=== PATIENT | male | born 1955 | race Caucasian/White ===

== ENCOUNTER 2024-12-13 17:41 | Inpatient (IN) | payer OTHER, MEDICARE ==
[~2024-12-13] VITALS: Ht 182.9 cm; Wt 75.3 kg
--- NOTE | 2024-12-13 19:09 | Physician Documentation ---
History of Present Illness ~ Chief Complaint: Bloody Stools Stated Complaint: GI BLEED Time Seen by MD: 18:26 HPI Patient presents to the emergency room for evaluation sent by [facility] for upper GI bleed. Patient has been having some black stools recently and brou ght his stool in to be evaluated which was tarry in appearance with guaiac positive. Significant alcohol abuse. He does not believe he has ever had an EGD performed. No hematemesis reported. He is not on blood thinners. He was started on Protonix from sending facility. CT scan was negative for any perforation Review of Systems ROS All review of systems negative except as per HPI Physical Exam Vital Signs: Temperature: 98.6, Source: Oral, Heart Rate: 82, Respiratory Rate: 16, BP: 113/77, Pulse Oximetry: 92, Weight: 75.300 Oxygen Flow Rate: 0 Physical Exam General: Patient is awake, alert, oriented x4 in no acute distress. Mild tremors Head: Normocephalic and atraumatic. Eyes: Conjunctival normal. EOMI. PERRL. ENT: Mucous membranes moist. Neck: Supple, trachea is midline. Chest: Clear to auscultation bilaterally without rales, rhonchi, or wheezes. There is no accessory muscle use or retractions. Cardiac: RRR without murmurs, gallops, or rubs. Abd: Soft, nondistended, nontender, with normoactive bowel sounds. No guarding, rebound, or rigidity. Progress Results/Orders Results/Orders Orders - ABDIAS HINOJOSA MD Pantoprazole 40mg/Ns 100ml Bag (Protonix (12/13/24 21:00) Chlordiazepoxide Capsule (Librium Capsul (12/13/24 18:30) Vital Signs 12/13/24 17:56 Temp 98.6 Pulse 82 Resp 16 B/P (MAP) 113/77 Pulse Ox 92 O2 Flow Rate 0 Medical Decision Making Findings Patient presents to the emergency room for evaluation of upper GI bleed transferred from [facility]. Protonix initiated. He has been having black tarry stools which were guaiac positive. Positive history of alcohol abuse. Labs reviewed show elevation of BUN consistent with diagnosis of upper GI bleed. Vital signs currently stable. We will admit for further investigation Departure Admitted to Inpatient Unit: yes, to hospitalist Impression: Primary Impression: GI bleed Additional Impression: Alcohol abuse Condition: Guarded Referrals: NO PRIMARY CARE PROVIDER (PCP) Critical Care Note Total Time (mins): 45 Critical Care Note The very real possibility of a deterioration of this patient's condition required the highest level of my preparedness for sudden, emergent intervention. I provided critical care services, which included medication orders, frequent reevaluations of the patient's condition and response to treatment, ordering and reviewing test results, and discussing the case with various consultants. Excludes time spent performing separately billable procedures. The critical care time associated with the care of the patient was 45 not counting procedures Signature Scribe Signature: No scribe Attestation: The note accurately reflects work and decisions made by me.Abdias Hinojosa MD 12/13/24 19:17 ABDIAS HINOJOSA MD Dec 13, 2024 19:09
[2024-12-13] MEDS ORDERED: NO HOME MEDS (19:17)
[2024-12-13 19:41] LABS: BASOPHILS % (AUTO) 0.5 % (0-1); EOSINOPHILS % (AUTO) 0.6 % (0-6); HEMATOCRIT 35.1 % (42.0-52.0); HEMOGLOBIN 11.9 g/dl (14.0-17.9); LYMPHOCYTES # (AUTO) 0.6 X10'3 (1.1-4.8); LYMPHOCYTES % (AUTO) 10.7 % (21-51); MEAN CORPUSCULAR HEMOGLOBIN 34.6 PG (27.0-31.0); MEAN CORPUSCULAR HGB CONC 33.8 g/dL (33.0-36.5); MEAN CORPUSCULAR VOLUME 102.5 FL (78-98); MEAN PLATELET VOLUME 6.8 FL (7.4-10.4); MONOCYTES # (AUTO) 0.5 X10'3 (0-0.9); MONOCYTES % (AUTO) 9.9 % (2-12); NEUTROPHILS # (AUTO) 4.3 X10'3 (1.8-7.7); NEUTROPHILS % (AUTO) 78.3 % (42-75); PLATELET COUNT 198 X10'3 (140-440); RED BLOOD COUNT 3.43 X10'6 (4.70-6.10); RED CELL DISTRIBUTION WIDTH 16.8 % (11.5-14.5); WHITE BLOOD COUNT 5.5 X10'3 (4.5-11.0)
[2024-12-13 19:54] LABS: ALANINE AMINOTRANSFERASE 26 U/L (12-78); ALBUMIN/GLOBULIN RATIO 1.2 (1.1-1.5); ALKALINE PHOSPHATASE 67 IU/L (46-116); ANION GAP 10 (8-16); ASPARTATE AMINO TRANSFERASE 22 U/L (10-37); BILIRUBIN,TOTAL 0.9 MG/DL (0.1-1.0); BLOOD UREA NITROGEN 23 MG/DL (7-18); BUN/CREATININE RATIO 29.1 (10.0-20.0); CALCIUM 8.1 MG/DL (8.5-10.1); CHLORIDE 106 MMOL/L (99-107); CREATININE 0.79 MG/DL (0.60-1.10); GLUCOSE 87 MG/DL (70-104); POTASSIUM 3.3 MMOL/L (3.5-5.1); SODIUM 144 MMOL/L (135-145); TOTAL CARBON DIOXIDE 27.8 MMOL/L (24-32); TOTAL PROTEIN 5.6 G/DL (6.4-8.2); eCRCL 91 ML/MIN; eGFR > 90 ML/MIN
[2024-12-13] MEDS: chlordiazePOXIDE 25mg capsule PO ONE (20:27)
[2024-12-13] MEDS: pantoprazole 40MG/NS 100ML BAG 100 ML IV SCH (20:30)
[2024-12-13 22:10] VITALS: BP 137/68; PULSE 67; RESP 18; TEMP 97.3; O2SAT 97
[2024-12-13] MEDS ORDERED: magnesium sulf-water 2g/50mL 50 ML IV PRN (22:10)
[2024-12-13] MEDS: normal saline 1000ml 1,000 ML IV SCH (22:10)
[2024-12-13] MEDS ORDERED: LORazepam 1 MG tablet PO PRN (22:10)
[2024-12-13] MEDS ORDERED: ondansetron/PF 4mg/2ml inj IV PRN (22:10)
[2024-12-13] MEDS ORDERED: acetaminophen 325mg tablet PO PRN (22:10)
[2024-12-13] MEDS ORDERED: LORazepam 2 mg/ml vial IV PRN (22:10)
[2024-12-13] MEDS ORDERED: mag hydrox/Alum hydrox/simeth 30ml oral suspension PO PRN (22:10)
[2024-12-13] MEDS ORDERED: magnesium hydroxide 30ml (MOM) UD suspension PO PRN (22:10)
[2024-12-13] MEDS ORDERED: magnesium sulf-water 4G/100mL 100 ML IV PRN (22:10)
[2024-12-13] MEDS ORDERED: potassium Cl 40MEQ/1/2NS 520ml 520 ML IV PRN (22:10)
[2024-12-13] MEDS: PERFLUTREN PROTEIN-A MICROSPHR (Optison) 0.22 MG/ML 3ML VIAL IV ONE (22:10)
[2024-12-13] MEDS ORDERED: potassium Cl 20 mEq SR tablet PO PRN (22:10)
[2024-12-13] MEDS ORDERED: ipratropium/albuterol 3ml nebule NEB PRN (22:20)
--- NOTE | 2024-12-13 22:20 | HISTORY AND PHYSICAL-Residence ---
History & Physical Providers to CC Resident Creating Document: SINAN SOSA, RES CC: SHONDA MORIN MD ~ History of Present Illness Reason for Admit\Complaint: Bloody stools History of Present Illness A 69-year-old male with past medical history of COPD and chronic neck pain presented as a transfer from [facility] in view of upper abdominal pain and dark tarry stools for the past three days. Patient states that he had multiple episodes of black tarry stools for the last three days, but no hematemesis. Patient states that he had vomited the food that he had taken the day before black tarry stools have started. Patient also started to have abdominal pain that relieved on passing the stools. Patient endorses heavy alcohol drinking about drinking one bottle of gin in three days. Patient denies using any anticoagulants at home. Patient does not remember when he underwent colonoscopy but does not have any significant findings. Patient never underwent an EGD. Patient states that his abdominal pain is sharp in character with no radiation that increases with coughing or sneezing and relieves on rest. Patient presented to the ED at [facility] with a clear bottle containing black tarry stool suspicious of GI bleed. Allergies: Coded Allergies: No Known Allergies (Unverified , 12/13/24) Home Medications Home Medications Active Reported No Home Medications (Home Med List) Each Past Medical History Past Medical History COPD Closed fracture of multiple left ribs Chronic neck pain Past Surgical History Surgical History Comment None Past Social History Social History Comment Lives in we were well with a friend Goes [facility] Smokes half pack of cigarettes every day for the last 60 years but increased to one pack per day for the last eight years Consumes one whole bottle of gin in three days Does not consume marijuana or illicit drugs ROS ROS All other systems reviewed in full and negative except for the pertinent positives mentioned in the HPI Exam Vitals: Vital Signs Date Time Temp Pulse Resp B/P (MAP) Pulse Ox O2 Delivery O2 Flow Rate FiO2 12/13/24 21:28 15 12/13/24 21:28 70 95 0 12/13/24 19:18 98.6 General: General: Alert, awake, oriented, not in acute distress HEENT: Loss of for teeth in the lower jaw, PERRLA, no icterus, pallor, lymphadenopathy, carotid bruit Respiratory system: Bilateral vesicular breath sounds heard, no adventitious breath sounds CVS: S1-S2 heard, no murmurs/rubs/gallop GI: Tenderness in the upper abdominal region, Soft, no organomegaly, no guarding/rigidity, bowel sounds present Neuro: No focal neurological deficits present Extremities: No edema cyanosis clubbing/deformities Skin: Warm and dry Diagnostic Data Last Recorded Lab Results: 12/13/24193112/13/241931 Advance Care Planning Advanced Care plannin - 30 Minutes (I spent 20 minutes discussing various resuscitative measures and the patient decided to be full code) Additional Plan Assessment: A 69-year-old male with a past medical history of COPD presented to the ED as a transfer in view of bloody stools. Patient is admitted for the evaluation management of possible upper GI bleed. Plan: Possible upper GI bleed 2/2 most likely alcoholic gastritis H/H stable IV Protonix drip H/H q.4h, transfuse if HGB less than seven NPO CT abdomen at OSH: Trace hyperdense material and sigmoid colon which may represent blood products, mild wall thickening of several small bowel loops in the left abdomen which may be secondary to enteritis. Moderately dilated common duct with a question of a punctate stone in the distal common bile duct correlate with liver chemistries Consult with GI in a.m., possible upper GI endoscopy Possible CBD stone Liver enzymes normal If the patient continues to complain of pain despite no active bleeding might require further analysis with MRCP/ERCP COPD, not in acute exacerbation DuoNeb q.4h p.r.n. Follow up with echo, lipid panel and A1c Code status: Full code Diet: NPO DVT prophylaxis: SCD Disposition: Admit to PCU, GI consult in a.m. with possible EGD Sinan Sosa MD Internal Medicine, PGY 1 I discussed the patient with the resident and agree with the assessment and plan as above. Shonda Morin MD Critical Care Date of Service: Dec 13, 2024 Billing Provider: SHONDA MORIN MD,SINAN, RES Dec 13, 2024 22:20 SHONDA MORIN MD Dec 14, 2024 03:20
[2024-12-13 22:59] VITALS: PULSE 72; RESP 16; O2SAT 92
[2024-12-13 23:45] LABS: HEMOGLOBIN 10.7 g/dl (14.0-17.9); MEAN CORPUSCULAR HEMOGLOBIN 35.4 PG (27.0-31.0); MEAN CORPUSCULAR HGB CONC 34.6 g/dL (33.0-36.5); MEAN CORPUSCULAR VOLUME 102.3 FL (78-98); MEAN PLATELET VOLUME 6.9 FL (7.4-10.4); PLATELET COUNT 170 X10'3 (140-440); RED BLOOD COUNT 3.03 X10'6 (4.70-6.10); RED CELL DISTRIBUTION WIDTH 15.8 % (11.5-14.5); WHITE BLOOD COUNT 4.8 X10'3 (4.5-11.0)
[2024-12-14] VITALS (20 sets, daily range): BP systolic 111–142; BP diastolic 39–86; PULSE 49–95; RESP 14–24; TEMP 97–98.6; O2SAT 92–98
[2024-12-14] MEDS: pantoprazole 40MG/NS 100ML BAG 100 ML IV ONE ×2 (00:56→07:56)
[2024-12-14] MEDS: pantoprazole 40MG/NS 100ML BAG 100 ML IV SCH (01:00)
--- NOTE | 2024-12-14 01:43 | RADIOLOGY REPORT ---
CHEST RADIOGRAPH Indication: pneumonia Technique: Single frontal view of the chest was obtained Comparison: None FINDINGS: Lines and Tubes: None Lungs: Clear Pleura: No effusion. No pneumothorax. Cardiomediastinal contours: Unremarkable Bones: Unremarkable IMPRESSION: Clear lungs.
[2024-12-14 03:20] LABS: BASOPHILS % (AUTO) 0.7 % (0-1); EOSINOPHILS # (AUTO) 0.1 X10'3 (0-0.9); EOSINOPHILS % (AUTO) 2.3 % (0-6); HEMATOCRIT 32.6 % (42.0-52.0); LYMPHOCYTES % (AUTO) 23.2 % (21-51); MEAN CORPUSCULAR HEMOGLOBIN 34.8 PG (27.0-31.0); MEAN CORPUSCULAR HGB CONC 33.9 g/dL (33.0-36.5); MEAN CORPUSCULAR VOLUME 102.7 FL (78-98); MEAN PLATELET VOLUME 7.2 FL (7.4-10.4); MONOCYTES # (AUTO) 0.4 X10'3 (0-0.9); MONOCYTES % (AUTO) 9.5 % (2-12); NEUTROPHILS # (AUTO) 2.8 X10'3 (1.8-7.7); NEUTROPHILS % (AUTO) 64.3 % (42-75); PLATELET COUNT 180 X10'3 (140-440); RED BLOOD COUNT 3.17 X10'6 (4.70-6.10); RED CELL DISTRIBUTION WIDTH 16.1 % (11.5-14.5); WHITE BLOOD COUNT 4.3 X10'3 (4.5-11.0)
[2024-12-14 03:27] LABS: ALBUMIN 2.5 G/DL (3.4-5.0); ANION GAP 11 (8-16); BLOOD UREA NITROGEN 22 MG/DL (7-18); BUN/CREATININE RATIO 33.8 (10.0-20.0); CHLORIDE 108 MMOL/L (99-107); CHOL/HDL RATIO 1.5 (0.00-4.99); CHOLESTEROL 140 MG/DL (0-200); CREATININE 0.65 MG/DL (0.60-1.10); GLUCOSE 84 MG/DL (70-104); HDL CHOLESTEROL 94 MG/DL (35-60); LDL CHOLESTEROL 35 MG/DL (50-100); MAGNESIUM 1.5 MG/DL (1.5-2.4); POTASSIUM 3.2 MMOL/L (3.5-5.1); SODIUM 146 MMOL/L (135-145); TOTAL CARBON DIOXIDE 26.8 MMOL/L (24-32); TRIGLYCERIDES 73 MG/DL (20-135); eCRCL 111 ML/MIN; eGFR > 90 ML/MIN
[2024-12-14] MEDS: docusate sod 100mg capsule PO SCH (08:00)
[2024-12-14] MEDS: multivitamins, therapeutics tablet PO SCH (08:00)
[2024-12-14] MEDS: K and/or MAG REPLACEMENT MC SCH (08:00)
[2024-12-14 08:28] LABS: HEMATOCRIT 32.8 % (42.0-52.0); HEMOGLOBIN 11.2 g/dl (14.0-17.9); MEAN CORPUSCULAR HEMOGLOBIN 35.3 PG (27.0-31.0); MEAN CORPUSCULAR HGB CONC 34.3 g/dL (33.0-36.5); MEAN CORPUSCULAR VOLUME 102.9 FL (78-98); MEAN PLATELET VOLUME 7.4 FL (7.4-10.4); PLATELET COUNT 164 X10'3 (140-440); RED BLOOD COUNT 3.19 X10'6 (4.70-6.10); RED CELL DISTRIBUTION WIDTH 16.4 % (11.5-14.5); WHITE BLOOD COUNT 4.5 X10'3 (4.5-11.0)
[2024-12-14] MEDS: thiamine 100mg/ml 2ml inj. IV SCH (09:00)
--- NOTE | 2024-12-14 11:01 | PROGRESS NOTE ---
Daily Progress Note Providers to CC ~ Antibiotic Timeout Antibiotic Ordered?: No Subjective No complaints. Patient is seen resting comfortably Objective Vital Signs Date Time Temp Pulse Resp B/P (MAP) Pulse Ox O2 Delivery O2 Flow Rate FiO2 12/14/24 08:26 63 16 93 Room Air* 0 21 12/14/24 02:00 97.0 130/65 (86) Result Diagram: 12/14/24 0759 12/14/24 0310 Awake alert cooperative in no acute distress HEENT normocephalic atraumatic extraocular movements are intact Neck supple, no JVD Chest: Clear to auscultation, no wheezes crackles rhonchi Heart regular rate rhythm, no murmur or gallop rub Abdomen is soft nontender no organomegaly Extremities no cyanosis clubbing or edema Neuro exam is nonfocal. Other Results Medications reviewed Problem\Assessment\Plan 69 years old male presented to the ER for evaluation of black tarry stools. 1. Melena: H&H is stable. Continue monitor. GI consultation requested , I spoke to Dr. Jimenez. Continue IV protonix 2. COPD without exacerbation; Inhaled bronchodilators PRN 3.Chronic neck pain Address pain control as necessary. 4. Hypokalemia Replace per protocol 5. Code status ; Full code. Date of Service: Dec 14, 2024 Billing Provider: ZHANE CHOI MD Common Visit Codes: [id number] INP/OBS CARE(HIGH) ZHANE CHOI MD Dec 14, 2024 11:01
--- NOTE | 2024-12-14 12:46 | CONSULTATION REPORT - RESIDENT ---
Consult Providers to CC Resident Creating Document: DARIEL MORRISLAZ MATTHEW CC: AVANI SILVER MD History of Present Illness Reason for Admit\Complaint: Black stools History of Present Illness Patient is 69-year-old male with past medical history of spinal stenosis who came to ED after 48 hours of black tarry stools. Patient reports that two days prior to admission he presented with black tarry/liquid stools, accompanied with mild 3/10 epigastric pain, constant, nonradiating. Reports four episodes a day. He denies nausea, vomiting, fever, chills or any other subjective symptoms. Patient reports that he usually takes hydrocodone for his back pain, however, when he is are refills of hydrocodone he takes ibuprofen, last time he took ibuprofen was three days ago, he took two pills of 600 mg. He states he has been doing this for about one year. In addition, he reports heavy alcohol intake, however, his last drink was about two weeks ago. He has never had an endoscopy in the past. His last colonoscopy was two years ago through the [place] and he was told it was normal. Patient has not had a bowel movement since admission. Hemoglobin has been relatively stable. GI has been consulted for consideration of EGD. Allergies: Coded Allergies: No Known Allergies (Unverified , 12/13/24) Home Medications Home Medications Active Reported No Home Medications (Home Med List) Each Past Medical History Past Medical History Spinal stenosis Past Surgical History Surgical History Comment Pyloric stenosis repair as a Past Social History Social History Comment Smokes half pack a day. Since teenager Drinks two beers a day in the bottle of gin every three days. He states he has been doing well for the past seven months. Last drink two weeks ago Patient lives with a roommate Independent. He does have a cane but does not use it Exam Vitals: Vital Signs Date Time Temp Pulse Resp B/P (MAP) Pulse Ox O2 Delivery O2 Flow Rate FiO2 12/14/24 08:26 63 16 93 Room Air* 0 21 12/14/24 06:00 97.9 115/63 (80) General: General: awake, alert oriented to place, time, and person HEENT: Mild pallor present, no icterus, slightly dry mucous membranes Neck: No masses and tenderness Resp: Unlabored. Lungs clear to auscultation bilaterally. Heart: Regular Rate and rhythm, normal S1 and S2 without murmur, rub or gallop Abdomen: Soft and slightly tender to palpation in epigastrium, no organomegaly, no guarding and rigidity, bowel sounds present Neuro: No weakness in the upper and lower limb muscles, power of the muscles 5/5 bilateral upper and lower muscles, knee reflex present bilaterally. Cranial nerves intact Extremities: No cyanosis,clubbing or edema Skin: Warm and Dry. No lesions Diagnostic Data Last Recorded Lab Results: 12/14/24 0759 12/14/24 0310 Additional Plan Patient is 69-year-old male with past medical history of spinal stenosis who came to ED after 48 hours of black tarry stools. Admitted with diagnosis of possible upper GI bleed. GI has been consulted for consideration of EGD. Upper GI bleed, likely 2/2 to NSAIDs Possible peptic ulcer Possible alcoholic gastropathy Patient has not had bowel movement since admission Hemoglobin relatively stable at 11 Protonix drip started since admission Avoid NSAIDs Keep NPO Continue IV fluids Will perform EGD today. All risks and benefits discussed with the patient, including bleeding, perforation and need for surgical intervention in case of such complications. Patient understands and agrees to proceed Other comorbidities include: Spinal stenosis Avoid NSAIDs Continue other recommendations per hospitalist team Disposition: Continue care in PCU. EGD today Laz Morris MD Internal Medicine Resident PGY-1 Date of Service: Dec 14, 2024 Billing Provider: AVANI SILVER MD, LEONARDO LUIS Dec 14, 2024 12:46 AVANI SILVER MD Dec 14, 2024 15:58
[2024-12-14 13:06] LABS: HEMATOCRIT 34.2 % (42.0-52.0); HEMOGLOBIN 11.5 g/dl (14.0-17.9); MEAN CORPUSCULAR HEMOGLOBIN 35.1 PG (27.0-31.0); MEAN CORPUSCULAR HGB CONC 33.6 g/dL (33.0-36.5); MEAN CORPUSCULAR VOLUME 104.4 FL (78-98); MEAN PLATELET VOLUME 7.2 FL (7.4-10.4); PLATELET COUNT 180 X10'3 (140-440); RED BLOOD COUNT 3.27 X10'6 (4.70-6.10); RED CELL DISTRIBUTION WIDTH 16.3 % (11.5-14.5); WHITE BLOOD COUNT 4.2 X10'3 (4.5-11.0)
[2024-12-14] MEDS ORDERED: sevoflurane 250ml liquid IH ONE (14:30)
[2024-12-14] MEDS ORDERED: midazolam 1 mg/ML 2ml injection ONE (14:46)
[2024-12-14] MEDS ORDERED: fentaNYL/PF 50MCG/1 ML 2ML syringe ONE (14:46)
[2024-12-14] MEDS ORDERED: propofol inj 20 ML IV ONE (14:53)
[2024-12-14 16:22] LABS: HEMATOCRIT 34.7 % (42.0-52.0); HEMOGLOBIN 11.7 g/dl (14.0-17.9); MEAN CORPUSCULAR HEMOGLOBIN 35.2 PG (27.0-31.0); MEAN CORPUSCULAR HGB CONC 33.8 g/dL (33.0-36.5); MEAN CORPUSCULAR VOLUME 104.1 FL (78-98); MEAN PLATELET VOLUME 7.5 FL (7.4-10.4); PLATELET COUNT 179 X10'3 (140-440); RED BLOOD COUNT 3.33 X10'6 (4.70-6.10); RED CELL DISTRIBUTION WIDTH 16.5 % (11.5-14.5); WHITE BLOOD COUNT 4.5 X10'3 (4.5-11.0)
[2024-12-14] MEDS: potassium Cl 20 mEq SR tablet PO PRN (16:42)
--- NOTE | 2024-12-14 18:09 | CARDIOLOGY REPORT ---
APPROVED REPORT EXAM: Comprehensive 2D, Doppler, and color-flow Echocardiogram. 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 88.5 cm/s AoV VTI 18.0 cm AO Peak GR. 3.1 mmHg AO Mean GR. 2 mmHg LVOT VTI 22.09 cm LVOT Peak Robe. 95.0 cm/s KIRAN(VTI)/BSA 3.77 cm2/m2 KIRAN (VTI) 3.77 cm2 Mitral Valve MV E Velocity 85.8 cm/s MV Peak Gr. 3 mmHg MV DECEL TIME 268 ms MV A Velocity 74.0 cm/s MV PHT 84 ms E/A Ratio 1.2 MVA (PHT) 2.62 cm2 MV VMax92.0 cm/s TDI Lateral E' P. V12.65 cm/s E/Lateral E' 6.8 Tricuspid Valve TR P. Velocity 160 cm/s RAP ESTIMATE 10 mmHg TR Peak Gr. 10 mmHg RVSP 20 mmHg LEFT VENTRICLE Normal LV size and wall thickness. Overall systolic function is normal. LVEF is 70-75%. RIGHT VENTRICLE Right ventricle is grossly normal in size and function. ATRIA The left atrium size is normal. AORTIC VALVE Trileaflet AV appears mildly sclerotic without stenosis. Trivial insufficiency. MITRAL VALVE Mild mitral annular calcification without stenosis. Trace regurgitation. TRICUSPID VALVE The tricuspid valve is normal in structure with trace regurgitation. PULMONIC VALVE Pulmonic valve is grossly normal in structure. GREAT VESSELS The aortic root is normal in size. The IVC is normal in size and collapses >50% with inspiration. PERICARDIUM Normal pericardium. No effusion. Other Information Study Quality: Fair with difficult apical views Conclusion Normal LV size and wall thickness. Overall systolic function is normal. LVEF is 70-75%. Right ventricle is grossly normal in size and function. The left atrium size is normal. Trileaflet AV appears mildly sclerotic without stenosis. Trivial insufficiency. Mild mitral annular calcification without stenosis. Trace regurgitation. The tricuspid valve is normal in structure with trace regurgitation. Normal pericardium. No effusion.
[2024-12-14 20:00] LABS: HEMOGLOBIN 11.1 g/dl (14.0-17.9); MEAN CORPUSCULAR HEMOGLOBIN 34.9 PG (27.0-31.0); MEAN CORPUSCULAR HGB CONC 33.7 g/dL (33.0-36.5); MEAN CORPUSCULAR VOLUME 103.6 FL (78-98); MEAN PLATELET VOLUME 7.2 FL (7.4-10.4); PLATELET COUNT 181 X10'3 (140-440); RED BLOOD COUNT 3.19 X10'6 (4.70-6.10); RED CELL DISTRIBUTION WIDTH 16.3 % (11.5-14.5); WHITE BLOOD COUNT 4.4 X10'3 (4.5-11.0)
[2024-12-14] MEDS: morphine 2 MG/ML inj. syringe IV PRN (22:47)
[2024-12-15] MEDS ORDERED: OMEP20TA23 PO (00:23)
[2024-12-15] MEDS ORDERED: ALBU8HFA INH (00:31)
[2024-12-15] MEDS ORDERED: GUAI120015 PO (00:35)
[2024-12-15] MEDS ORDERED: HYDR-3972 PO (00:40)
[2024-12-15] MEDS ORDERED: FURO-150 PO ×2 (00:44→00:50)
[2024-12-15] MEDS ORDERED: LIDO1ADH78 TOP (00:49)
[2024-12-15] MEDS ORDERED: HYDR-3965 PO (00:51)
[2024-12-15] MEDS ORDERED: POTA20PA40 PO (00:55)
[2024-12-15] MEDS ORDERED: NAPR-56 PO (00:56)
[2024-12-15] MEDS ORDERED: DICY20TA17 PO (00:57)
[2024-12-15] MEDS ORDERED: LOPE-144 PO (00:58)
[2024-12-15] MEDS ORDERED: CYCL-394 PO (00:59)
[2024-12-15] MEDS: Melatonin 3mg tablet PO SCH (01:44)
[2024-12-15 02:00] VITALS: BP 106/69; PULSE 61; RESP 22; TEMP 98.2; O2SAT 96
[2024-12-15 06:00] VITALS: BP 114/68; PULSE 68; RESP 12; TEMP 97.1; O2SAT 97
[2024-12-15 06:20] LABS: EOSINOPHILS # (AUTO) 0.2 X10'3 (0-0.9); EOSINOPHILS % (AUTO) 4.2 % (0-6); HEMATOCRIT 31.5 % (42.0-52.0); HEMOGLOBIN 10.7 g/dl (14.0-17.9); LYMPHOCYTES # (AUTO) 0.9 X10'3 (1.1-4.8); LYMPHOCYTES % (AUTO) 20.8 % (21-51); MEAN CORPUSCULAR HGB CONC 33.9 g/dL (33.0-36.5); MEAN CORPUSCULAR VOLUME 103.2 FL (78-98); MEAN PLATELET VOLUME 7.5 FL (7.4-10.4); MONOCYTES # (AUTO) 0.3 X10'3 (0-0.9); MONOCYTES % (AUTO) 8.1 % (2-12); NEUTROPHILS # (AUTO) 2.8 X10'3 (1.8-7.7); NEUTROPHILS % (AUTO) 65.9 % (42-75); PLATELET COUNT 162 X10'3 (140-440); RED BLOOD COUNT 3.05 X10'6 (4.70-6.10); RED CELL DISTRIBUTION WIDTH 16.1 % (11.5-14.5); WHITE BLOOD COUNT 4.2 X10'3 (4.5-11.0)
[2024-12-15 06:28] LABS: ALBUMIN 2.3 G/DL (3.4-5.0); ANION GAP 11 (8-16); BLOOD UREA NITROGEN 16 MG/DL (7-18); BUN/CREATININE RATIO 27.1 (10.0-20.0); CALCIUM 7.6 MG/DL (8.5-10.1); CHLORIDE 109 MMOL/L (99-107); CREATININE 0.59 MG/DL (0.60-1.10); GLUCOSE 89 MG/DL (70-104); MAGNESIUM 1.4 MG/DL (1.5-2.4); POTASSIUM 3.4 MMOL/L (3.5-5.1); SODIUM 145 MMOL/L (135-145); TOTAL CARBON DIOXIDE 24.9 MMOL/L (24-32); eCRCL 122 ML/MIN; eGFR > 90 ML/MIN
[2024-12-15 08:42] LABS: HEMATOCRIT 31.7 % (42.0-52.0); HEMOGLOBIN 10.7 g/dl (14.0-17.9); MEAN CORPUSCULAR HEMOGLOBIN 34.8 PG (27.0-31.0); MEAN CORPUSCULAR HGB CONC 33.9 g/dL (33.0-36.5); MEAN CORPUSCULAR VOLUME 102.9 FL (78-98); MEAN PLATELET VOLUME 7.4 FL (7.4-10.4); PLATELET COUNT 161 X10'3 (140-440); RED BLOOD COUNT 3.08 X10'6 (4.70-6.10)
[2024-12-15] MEDS: magnesium Cl slow-release 64mg tablet PO PRN (08:43)
[2024-12-15] MEDS ORDERED: HYDROcodone/acetaminophen 5mg/325mg tablet PO PRN (08:45)
[2024-12-15] MEDS ORDERED: HYDROcodone/acetaminophen 10/325mg tab PO PRN (08:45)
[2024-12-15] MEDS: HYDROcodone/acetaminophen 5mg/325mg tablet PO PRN (08:45)
[2024-12-15] MEDS ORDERED: albuterol 2.5 MG/3 ML nebule NEB PRN (09:00)
[2024-12-15] MEDS: loperamide 2mg capsule PO SCH (10:00)
[2024-12-15 11:31] VITALS: PULSE 54; RESP 20; O2SAT 92
[2024-12-15 12:15] VITALS: BP 122/71; PULSE 59; RESP 11; TEMP 99.4; O2SAT 94
--- NOTE | 2024-12-15 12:15 | PROGRESS NOTE- Residence ---
Progress Note - Resident Providers to CC Resident Creating Document: LAZ LUNDBERG CC: AVANI SILVER MD ~ Antibiotic Timeout Antibiotic Ordered?: No Subjective Patient was seen at bedside today. He is feeling well, tolerating diet, no abdominal pain, hematemesis, or melena. Objective Vital Signs Date Time Temp Pulse Resp B/P (MAP) Pulse Ox O2 Delivery O2 Flow Rate FiO2 12/15/24 11:31 54 20 92 Room Air* 0 21 12/15/24 06:00 97.1 114/68 (83) Result Diagram: 12/15/24 0737 12/15/24 0541 General: awake, alert oriented to place, time, and person HEENT: Mild pallor present, no icterus, slightly dry mucous membranes Neck: No masses and tenderness Resp: Unlabored. Lungs clear to auscultation bilaterally. Heart: Regular Rate and rhythm, normal S1 and S2 without murmur, rub or gallop Abdomen: Soft and slightly tender to palpation in epigastrium, no organomegaly, no guarding and rigidity, bowel sounds present Neuro: No weakness in the upper and lower limb muscles, power of the muscles 5/5 bilateral upper and lower muscles, knee reflex present bilaterally. Cranial nerves intact Extremities: No cyanosis,clubbing or edema Skin: Warm and Dry. No lesions Plan Plan Gastroenterology progress note: Patient is 69-year-old male with past medical history of spinal stenosis who came to ED after 48 hours of black tarry stools. Admitted with diagnosis of possible upper GI bleed. GI has been consulted for consideration of EGD. Upper GI bleed, likely 2/2 to NSAIDs Grade C reflux esophagitis with no bleeding Nonbleeding duodenal ulcers Duodenitis Possible alcoholic gastropathy Patient underwent EGD yesterday which revealed above findings Hemoglobin stable Okay to switch to p.o. Protonix. Continue 40 mg p.o. daily for 8 weeks Continue regular diet Avoid alcohol Avoid NSAIDs Okay to discharge from GI standpoint Other comorbidities include: Spinal stenosis Avoid NSAIDs Continue other recommendations per hospitalist team Disposition: Okay to discharge from a GI standpoint Laz Jaeger MD Internal Medicine Resident PGY-1 Date of Service: Dec 15, 2024 Billing Provider: AVANI SILVER MD, LEONARDO LUIS Dec 15, 2024 12:15
[2024-12-15] MEDS ORDERED: OMEP-271 PO (13:31)
[2024-12-15 13:54] LABS: HEMATOCRIT 33.9 % (42.0-52.0); HEMOGLOBIN 11.4 g/dl (14.0-17.9); MEAN CORPUSCULAR HEMOGLOBIN 34.7 PG (27.0-31.0); MEAN CORPUSCULAR HGB CONC 33.7 g/dL (33.0-36.5); MEAN PLATELET VOLUME 7.6 FL (7.4-10.4); PLATELET COUNT 180 X10'3 (140-440); RED BLOOD COUNT 3.29 X10'6 (4.70-6.10); RED CELL DISTRIBUTION WIDTH 15.9 % (11.5-14.5)
[2024-12-15] MEDS ORDERED: PANT-47 PO (14:49)
--- NOTE | 2024-12-15 15:32 | DISCHARGE SUMMARY ---
Discharge Summary Providers to CC ~ Discharge Summary Admission Diagnosis: POSSIBLE UPPER GI BLEED Hospital Course DATE OF ADMISSION: DATE OF DISCHARGE:12/15/2024 Discharge Diagnosis\Comment: LA Grade C reflux esophagitis Operations\Procedures: EGD Consultants: Dr. Jimenez Complications: None Condition on DC: Stable New Medications: Pantoprazole Sodium (PROTONIX tablet) 40 Mg Tablet.dr 1 TAB PO DAILY for 30 Days, #30 TAB 0 Refills Continued Medications: albuterol inhaler (Pro-Air Inhaler) 8.5 Gm Inhaler 2 PUFFS INH Q4HPRN PRN for wheezing for 30 Days, #18 GM Cyclobenzaprine HCl (Cyclobenzaprine HCl) 10 Mg Tablet 1 TAB PO Q8H for muscle spasms for 10 Days, #30 TAB Dicyclomine HCl (Dicyclomine HCl) 20 Mg Tablet 1 TAB PO Q12H for irritable bowel symptoms for 30 Days, #60 TAB 0 Refills Furosemide (Lasix) 20 Mg Tablet 20 MG PO, TAB Furosemide (Lasix) 20 Mg Tablet 1 TAB PO DAILY for 30 Days, #30 TAB 0 Refills Guaifenesin (Mucinex) 1,200 Mg Tbbp.12hr 1 TAB PO Q12H for cough for 15 Days, #30 TAB 0 Refills Hydrocodone Bit/Acetaminophen 5/325 MG (Galt 5/325 MG) 5 Mg/325 Mg Tablet 1 TAB PO Q4H PRN for moderate or severe pain, TAB Hydrocodone Bit/Acetaminophen (Hydrocodon-Acetaminophn 10-325 tablet) 10mg- 325mg Tablet 1 TABLET PO Q4H PRN for moderate or severe pain 4-10, #20 TABLET Lidocaine (Lidocaine) 4 % Adh..patch TOP QDAY PRN PRN for pain for 30 Days, #30 PATCH 0 Refills Loperamide HCl (Imodium A-D) 2 Mg Tablet 1 TAB PO 5XD for 7 Days, #35 TAB 0 Refills Potassium Chloride (Klor-Con) 20 Meq Packet 1 PKT PO DAILY for 30 Days, #30 PKT 0 Refills Discontinued Medications: Naproxen (Naproxen) 500 Mg Tablet 1 TAB PO Q12H, #20 TAB Omeprazole Magnesium (Omeprazole Magnesium) 20 Mg Capsule. 2 CAP PO BID for 30 Days, #30 CAP 0 Refills Discharge Summary: Reason for admission: 69 years old male presented to the ER for evaluation of upper abdominal pain and black tarry stools x3 days Please refer to admission H&P for more details Hospital course: Patient admitted on the monitored floor under hospital course as follows. 1. LA grade C esophagitis/non bleeding duodenal ulcer: Patient was evaluated with an EGD done by Dr. Cotto which showed LA grade C reflux esophagitis with no bleeding, erythematous mucosa in the antrum and pre-pyloric region of the stomach and a nonbleeding duodenal ulcer with no stigmata attached. Patient has been started on PPIs and is advised to avoid NSAID use. 2. COPD without exacerbation: Treated with inhaled bronchodilators 3. Chronic neck pain: Continued on Flexeril, lidocaine patch and Galt however naproxen discontinued. Discharge exam: Examined the patient on the day of discharge. Awake alert cooperative in no acute distress HEENT normocephalic atraumatic extraocular movements are intact Neck supple, no JVD Chest: Clear to auscultation, no wheezes crackles rhonchi Heart regular rate rhythm, no murmur or gallop rub Abdomen is soft nontender no organomegaly Extremities no cyanosis clubbing or edema Neuro exam nonfocal. Disposition: Home *Problems/Diagnosis: (1) GI bleed Status: Acute Total Time Spent on D/C: > 30 Minutes Date of Service: Dec 15, 2024 Billing Provider: ZHANE CHOI MD Common Visit Codes: 70107-LEC/OBS DISCH DAY >30min ZHANE CHOI MD Dec 15, 2024 15:14
[2024-12-15] MEDS ORDERED: cyclobenzaprine 10mg tablet PO SCH (16:00)
--- NOTE | 2024-12-15 19:22 | PATHOLOGY REPORT ---
[facility] [address] [place] [address] SURGICAL PATHOLOGY REPORT CaseNumber: [id number] Surgeon:Wang Rodriguez M.D. CLINICAL INFORMATION CLINICAL INFORMATION: Melena. DIAGNOSIS DIAGNOSIS: STOMACH, ANTRUM; BIOPSY - MILD CHRONIC GASTRITIS. MICROSCOPIC DESCRIPTION MICROSCOPIC DESCRIPTION: A single slide of the gastric antrum biopsy is reviewed. Present is mild chr onic gastritis. The mucosa is intact without erosion or ulceration. There is no increased number of intraepithelial lymphocytes or neutrophils. The lamina propria is expanded by a slight increased content of fibrous tissue which distorts the glandular architecture to a slight extent. There is no m alignancy. (st) GROSS DESCRIPTION GROSS DESCRIPTION: Received in a container of formalin labeled with the patient's name, number, and " antrum BX" are 2 pieces of vela tissue 0.2 and 0.4 x 0.1 x 0.1 cm. The specimen is entirely submitted as A1. The time at which the specimen was removed was 145. The time at which the specimen was placed in formalin was 1451. Electronically signed by: Monty Lepe M.D. 12/15/2024 6:47:00 PM
[2024-12-15] MEDS ORDERED: guaiFENesin ER 600mg tablet PO SCH (20:00)
[2024-12-15] MEDS ORDERED: dicyclomine 10 MG capsule PO SCH (20:00)
[2024-12-16] MEDS ORDERED: furosemide 20MG tablet PO SCH (08:00)
[2024-12-18] MEDS ORDERED: folic acid 1mg tablet PO SCH (08:00)
== END 2024-12-15 15:18 | disposition home or self-care (01) | DRG 377 ==
LOC: ER 17:42 → PCU 3S 20:47
PROVIDERS: ADMIT Internal Medicine Pulmonary Disease; ATTEND Internal Medicine
PROC: 0DB78ZX Excision of Stomach, Pylorus, Via Natural or Artificial Opening Endoscopic, Diagnostic (ICD-10-PCS; 2024-12-14)
PROC: 0DB68ZX Excision of Stomach, Via Natural or Artificial Opening Endoscopic, Diagnostic (ICD-10-PCS; principal; 2024-12-14 14:32)
DX: K26.4 Chronic or unspecified duodenal ulcer with hemorrhage (principal); K21.01 Gastro-esophageal reflux disease with esophagitis, with bleeding; K29.61 Other gastritis with bleeding; F10.10 Alcohol abuse, uncomplicated; J44.9 Chronic obstructive pulmonary disease, unspecified; G89.29 Other chronic pain; M54.2 Cervicalgia; E87.6 Hypokalemia; K29.81 Duodenitis with bleeding
CPT/HCPCS: 36415; 43239; 71045; 80048; 80053; 80061; 83036; 83605; 83735; 85025; 85027; 86885; 86900; 86901; 87040; 87081; 93306; 94760; 99291; A4620; G0378; J2250; J2270; J2470; J2704; J3010; J3411; J7030